=== PATIENT | male | born 1975 | race Caucasian/White ===

== ENCOUNTER 2019-12-25 10:30 | Emergency (ER) | payer OTHER ==
[~2019-12-25] VITALS: Ht 177.8 cm; Wt 65.8 kg
--- NOTE | 2019-12-25 10:42 | NUR ---
CAME IN FOR ON & OFF CHEST PAIN/PALPITATION X 1 WEEK, "SOB AND CHEST PAIN LAST NIGHT", NO PALPITATION AND/OR CHEST PAIN UPON ARRIVAL IN ED. 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
--- NOTE | 2019-12-25 10:53 | NUR ---
[employer] OPERATOR AT BEDSIDE
--- NOTE | 2019-12-25 11:02 | NUR ---
DR CABALLERO AT BEDSIDE
[2019-12-25] MEDS ORDERED: LORAZEPAM INJ 2 MG/ML VIAL ONE (11:28)
[2019-12-25] MEDS: LORAZEPAM INJ 2 MG/ML VIAL IV ONE ×2 (11:30→11:32)
--- NOTE | 2019-12-25 11:30 | NUR ---
LORAZEPAM IV 0.5MG REFUSED BY PATIENT, WASTED MEDICATION WITNESSED BY STEPHANY MERAZ RN.
[2019-12-25 11:38] LABS: BASOPHILS % (AUTO) 0.2 % (0.0-2.0); EOSINOPHILS % (AUTO) 2.5 % (0.0-6.0); HEMATOCRIT 44 % (39-51); HEMOGLOBIN 15.2 g/dL (13.5-17.5); LYMPHOCYTES # (AUTO) 2.2 /CMM (0.8-4.8); LYMPHOCYTES % (AUTO) 35.2 % (20.0-44.0); MEAN CORPUSCULAR HGB CONC 35 g/dl (31.0-36.0); MEAN CORPUSCULAR VOLUME 87 fL (80-96); MONOCYTES # (AUTO) 0.6 /CMM (0.1-1.30); MONOCYTES % (AUTO) 8.8 % (2.0-12.0); NEUTROPHILS # (AUTO) 3.3 /CMM (1.8-8.9); NEUTROPHILS % (AUTO) 53.3 % (43.0-81.0); PLATELET COUNT (AUTO) 212 /CMM (150-450); WHITE BLOOD COUNT (AUTO) 6.3 K/uL (4.3-11.0)
[2019-12-25 11:45] LABS: CALCIUM, SERUM 9.1 mg/dL (8.5-10.1); CARBON DIOXIDE 30 mmol/L (21-32); CHLORIDE 105 mmol/L (98-107); GLUCOSE 92 mg/dL (74-106); POTASSIUM 3.4 mmol/L (3.5-5.1); SODIUM SERUM 142 mmol/L (136-145); UREA NITROGEN, BLOOD 14 mg/dL (7-18)
[2019-12-25 11:51] LABS: ALANINE AMINOTRANSFERASE 66 U/L (12-78); ALBUMIN 4.1 g/dL (3.4-5.0); ALKALINE PHOSPHATASE 76 U/L (46-116); ASPARTATE AMINOTRANSFERASE 31 U/L (15-37); BILIRUBIN,DIRECT 0.1 mg/dL (0.0-0.2); BILIRUBIN,TOTAL 0.4 mg/dL (0.2-1.0); TOTAL PROTEIN, SERUM 7.8 g/dL (6.4-8.2)
--- NOTE | 2019-12-25 12:22 | NUR ---
IV removed. Catheter intact and site benign. Pressure and 4x4 applied to site. No bleeding noted.Patient discharged to home in stable condition. Written and verbal after care instructions given. Patient verbalizes understanding of instruction.
[2019-12-25 12:24] VITALS: BP 120/86
== END 2019-12-25 12:24 | disposition home or self-care (01) ==
LOC: ER 10:42
DX: R00.2 Palpitations (principal); R07.89 Other chest pain
CPT/HCPCS: 36415; 71045-TC; 80048-TC; 80076-TC; 84484-TC; 85025-TC; J2060